=== PATIENT | male | born 1965 | race Caucasian/White ===

== ENCOUNTER 2020-05-27 01:48 | Emergency (ER) | payer SELFPAY ==
[~2020-05-27] VITALS: Ht 185.4 cm; Wt 84.8 kg
[2020-05-27 01:57] VITALS: BP 97/78
[2020-05-27] MEDS ORDERED: ACETAMINOPHEN ES 500 MG TABLET ONE (02:10)
[2020-05-27] MEDS ORDERED: ACETAMINOPHEN 325 MG TABLET PO ONE (02:30)
== END 2020-05-27 02:25 | disposition home or self-care (01) ==
LOC: ER 01:53
DX: S00.01XA Abrasion of scalp, initial encounter (principal); S09.8XXA Other specified injuries of head, initial encounter; Z59.0 Homelessness; Z88.8 Allergy status to other drugs, medicaments and biological substances; W22.8XXA Striking against or struck by other objects, initial encounter; Y93.89 Activity, other specified; Y92.89 Other specified places as the place of occurrence of the external cause; Y99.8 Other external cause status

== ENCOUNTER 2020-05-27 16:09 | Emergency (ER) | payer SELFPAY ==
[~2020-05-27] VITALS: Ht 185.4 cm; Wt 84.8 kg
[2020-05-27 17:25] VITALS: BP 124/84
--- NOTE | 2020-05-27 18:15 | NUR ---
[employer] HEL[employer] SAW THE PATIENT BUT THE PATIENT STS HE WANTED TO SMOKE FIRST.
--- NOTE | 2020-05-27 18:28 | NUR ---
PATIENT IN THE WAITING ROOM, CALLED MULTIPLE TIMES. REFUSING TO BE SEEN. PATIENT ASKED FOR WATER AND FOOD, AND GIVEN.
--- NOTE | 2020-05-27 18:45 | NUR ---
PATIENT LEFT WITHOUT BEING SEEN.
== END 2020-05-27 19:01 | disposition left against medical advice (07) ==
LOC: ER 16:11
DX: M25.551 Pain in right hip (principal); M25.542 Pain in joints of left hand; Z53.21 Procedure and treatment not carried out due to patient leaving prior to being seen by health care provider